=== PATIENT | female | born 1955 | race Caucasian/White ===

== ENCOUNTER 2023-02-04 06:52 | Outpatient (CLI) | payer MEDICARE, OTHER ==
--- NOTE | 2023-02-01 12:59 | NUR ---
SPOKE TO PT. SHE WILL BRING IN HER MED LIST
[~2023-02-04] VITALS: Ht 167.6 cm; Wt 64.7 kg
[2023-02-04] MEDS ORDERED: PAMELOR 25MG25 MG PO (08:16)
[2023-02-04] MEDS ORDERED: PREVALITE4 GM/5.5 G PO (08:16)
[2023-02-04] MEDS ORDERED: SYNTHROID0.05 MG/TA PO (08:17)
[2023-02-04] MEDS ORDERED: NORVASC 10MG10 MG PO (08:17)
[2023-02-04] MEDS ORDERED: VITAMIN B122500 MCG SL (08:18)
[2023-02-04] MEDS ORDERED: IRON TABLETS325 MG PO (08:19)
[2023-02-04] MEDS ORDERED: VTAMINC250TA PO (08:19)
[2023-02-04] MEDS ORDERED: FOSAMAX 35MG35 MG PO (08:20)
[2023-02-04 08:21] VITALS: BP 128/74; PULSE 65; TEMP 97.6
[2023-02-04] MEDS ORDERED: NEURONTIN100 MG/CAP PO (08:21)
[2023-02-04 09:15] VITALS: BP 132/75; PULSE 68; PULSE 71
[2023-02-04 09:30] VITALS: BP 124/74; PULSE 85
[2023-02-04 09:42] LABS: GLUCOSE,CSF 64 mg/dL (40-70); TOTAL PROTEIN,CSF 37 mg/dL (15-45)
[2023-02-04 09:45] VITALS: BP 128/79; PULSE 68
[2023-02-04 10:00] VITALS: BP 135/75; PULSE 72
[2023-02-04 10:15] VITALS: BP 129/71; PULSE 70
--- NOTE | 2023-02-04 10:25 | NUR ---
DC instructions reviewed with pt and . Both express understanding. Bandaid remains clean, dry and intact. Pt free of headache or other complaints. She is assisted out to 's car by wheelchair.
[2023-02-04 10:31] LABS: CSF APPEARANCE CLEAR; CSF COLOR PINK
[2023-02-04 10:32] LABS: CSF RBC 1440 /mm3 (0-0)
[2023-02-04 11:41] LABS: CSF MONONUCLEAR 33 % (70-100); CSF POLYMORPHONUCLEAR 67 % (0-6)
== END 2023-02-04 10:25 | disposition home or self-care (01) ==
LOC: COL.RAD 06:52
PROVIDERS: Psychiatry & Neurology Neurology
DX: H53.123 Transient visual loss, bilateral (principal); I82.90 Acute embolism and thrombosis of unspecified vein; E61.1 Iron deficiency; E55.9 Vitamin D deficiency, unspecified